=== PATIENT | male | born 1975 | race Two or more races ===

== ENCOUNTER 2016-06-12 10:05 | Emergency (ER) | payer SELFPAY ==
[~2016-06-12] VITALS: Ht 180.3 cm; Wt 100.0 kg
[~2016-06-12 10:05] MED LIST: ACCUTES19 XX; ATOR10TA PO; GLUM1000 PO; GLYB1TAB51 PO; LANTINJ SQ; ZITH250T PO; ZITHTAB PO; test strips
[2016-06-12 10:08] VITALS: BP 134/93; PULSE 82; RESP 15; TEMP 97.8; O2SAT 98
== END 2016-06-12 11:41 | disposition left against medical advice (07) ==
LOC: NETRI 10:05
DX: R07.0 Pain in throat (principal); R59.0 Localized enlarged lymph nodes; Z53.21 Procedure and treatment not carried out due to patient leaving prior to being seen by health care provider
CPT/HCPCS: 99281

== ENCOUNTER 2016-09-11 11:21 | Emergency (ER) | payer SELFPAY ==
[~2016-09-11] VITALS: Ht 180.3 cm; Wt 100.0 kg
[2016-09-11 11:22] VITALS: BP 133/85; PULSE 102; RESP 20; TEMP 99.4; O2SAT 99
--- NOTE | 2016-09-11 11:33 | PD ---
Physical Exam Time Seen by Provider: 11:31 Narrative 40yo M c/o chest tightness, chest congestion, cough, and SOB "sometimes" since yesterday morning. Denies hx asthma. Denies fever. Patient seen in triage. Awaiting bed placement. VS reviewed. Data Data Last Documented VS Vital Signs Date Time Temp Pulse Resp B/P Pulse Ox O2 Delivery O2 Flow Rate FiO2 09/11/16 11:22 99.4 102 20 133/85 99 Room Air MDM Supervised Visit with LAURY: Aparna Trinh Sep 11, 2016 11:33
--- NOTE | 2016-09-11 12:31 | RADRPT ---
EXAM DATE/TIME: 09/11/2016 12:24 [facility] COMPARISON: CHEST SINGLE AP, April 16, 2013, 8:18. INDICATIONS : Cough. MEDICAL HISTORY : Diabetes mellitus type II. SURGICAL HISTORY : None. ENCOUNTER: Initial ACUITY: 2 days PAIN SCORE: 7/10 LOCATION: Bilateral chest FINDINGS: PA and lateral views of the chest demonstrate a normal-sized cardiac silhouette. There is no effusion , consolidation, or pneumothorax. The bones and soft tissues demonstrate no acute abnormality. There are degenerative changes of the thoracic spine. CONCLUSION: No acute cardiopulmonary abnormality is identified. Gagandeep Briggs MD on September 11, 2016 at 12:26 Board Certified Radiologist. This report was verified electronically.
--- NOTE | 2016-09-11 13:35 | PD ---
HPI Chief Complaint: Respiratory Symptoms Time Seen by Provider: 13:34 Travel History International Travel<30 days: No Contact w/Intl Traveler<30days: No Traveled to known affect area: No History of Present Illness HPI 40-year-old untreated diabetic male presents to the ED for evaluation of 2 day history of malaise, sore throat, nonproductive cough, chest tightness. He denies fever or chills, nausea or vomiting, abdominal pain, dysuria. Denies sick contacts. No treatment in the home. PFSH Past Medical History Heart Rhythm Problems: No Cardiac Catheterization: No Cardiovascular Problems: No High Cholesterol: Yes Congestive Heart Failure: No Diabetes: Yes Diminished Hearing: No Immunizations Current: Yes Past Surgical History Coronary Artery Bypass Graft: No Hysterectomy: Yes Social History Alcohol Use: Yes (OCCAS. MIX DRINKS OR BEER) Tobacco Use: No (QUIT 11/29- SMOKED 1 PACK A WEEK -CIGS) Substance Use: No Allergies-Medications (Allergen,Severity, Reaction): Coded Allergies: No Known Allergies (Verified , 01/21/15) Reported Meds & Prescriptions Reported Meds & Active Scripts Active Glyburide 5 Mg Tab 5 Mg PO BID Take with meals at the same time each day Metformin (Metformin HCl) 1,000 Mg Tab 1,000 Mg PO BIDPC With meals Ibuprofen 600 Mg Tab 600 Mg PO Q8HR Tessalon Perles (Benzonatate) 100 Mg Cap 200 Mg PO TID PRN Azithromycin 250 Mg Tab 250 Mg PO DIRECTED Take 2 tabs (500 mg) on day 1 then 1 tab daily x 4 days. Zithromax Z-Bj (Azithromycin) 250 Mg Tab 250 Mg PO DIRECTED 500 MG (2 TABLETS) PO ON DAY 1, THEN 250 MG (1 TABLET) PO ON DAYS 2 TO 5. Zithromax Z-Bj (Azithromycin) 1 Tab Tab 500 Mg PO ONCE Glumetza (Metformin HCl) 1,000 Mg Tab 1,000 Mg PO BID Lantus Solostar Pen (Insulin Glargine) 100 Units/Ml Pen 12 Units SQ HS 90 Days Diabeta 5 mg (Glyburide) 5 Mg Tab 5 Mg PO BID Accu-Chek Celina Plus Test Strips #50 (Device) Strp 1 Box XX AC AND FASTING Atorvastatin 10 mg (Atorvastatin Calcium) 10 Mg Tab 10 Mg PO HS [test strips] TID Review of Systems Except as stated in HPI: all other systems reviewed are Neg Physical Exam Narrative GENERAL: Well-nourished, well-developed ill-appearing male in no acute distress. SKIN: Focused skin assessment warm/dry. HEAD: Normocephalic. EYES: No scleral icterus. No injection or drainage. ENT: Pearly jaimes tympanic membranes bilaterally. Nasal mucosa moist. Oropharynx erythematous without edema or exudates. Tonsils 2+ bilaterally. Uvula midline. Airway patent. NECK: Supple, trachea midline. No JVD or lymphadenopathy. CARDIOVASCULAR: Regular rate and rhythm without murmurs, gallops, or rubs. RESPIRATORY: Breath sounds clear and equal bilaterally. No accessory muscle use. GASTROINTESTINAL: Abdomen soft, non-tender, nondistended. MUSCULOSKELETAL: No cyanosis, or edema. Patient is ambulatory and moves the extremities spontaneously. BACK: Nontender without obvious deformity. No CVA tenderness. Data Data Last Documented VS Vital Signs Date Time Temp Pulse Resp B/P Pulse Ox O2 Delivery O2 Flow Rate FiO2 09/11/16 13:35 18 97 Room Air 09/11/16 11:22 99.4 102 133/85 Orders Chest, Pa & Lat (09/11/16 ) Group A Rapid Strep Screen (09/11/16 13:35) Influenzae A/B Antigen (09/11/16 13:35) Strep Culture (Group A) (09/11/16 13:30) MDM Medical Decision Making Medical Screen Exam Complete: Yes Emergency Medical Condition: Yes Differential Diagnosis Viral syndrome versus upper respiratory infection versus influenza versus pharyngitis versus strep pharyngitis versus other Narrative Course 40-year-old untreated diabetic male presents to the ED for evaluation of 2 day history of malaise, sore throat, nonproductive cough, chest tightness. He denies fever or chills, nausea or vomiting, abdominal pain, dysuria. Denies sick contacts. No treatment at home. Vitals reviewed. Physical exam reveals an ill-appearing male in no acute distress. The oropharynx is erythematous, 2+ tonsils bilaterally. No visible exudates. Chest clear to auscultation bilaterally. Chest x-ray ordered in triage clear per radiology read. Rapid strep and flu swabs negative. This is upper respiratory infection. Patient was prescribed Z-Bj, Tessalon Perles, ibuprofen. He also requested prescriptions for glyburide and metformin as he is in between doctors. I did provide these prescriptions but cautioned him that this should be taken care of by the primary care provider in the future. He is instructed to rest, hydrate, take the medications as prescribed, follow up with the primary care provider. He was provided a work note for the next 2 days. He is stable and discharged home. Diagnosis Primary Impression: Upper respiratory infection Qualified Code: J06.9 - Upper respiratory tract infection, unspecified type Additional Impression: Medication refill Referrals: Primary Care Physician Patient Instructions: General Instructions, Upper Respiratory Infection (ED) Additional Instructions: Rest, hydrate. Take Z-Bj as it is prescribed. Tessalon Perles to reduce the urge to cough. 600 mg ibuprofen up to 3 times a day to reduce throat pain and inflammation.. Replace toothbrush at the end of this illness. Follow-up with the primary care provider this week. Return to the ED for any urgent or emergent medical condition. Med/Other Pt SpecificInfo: Prescription(s) given Scripts Glyburide 5 Mg Tab5 Mg PO BID #60 TAB Ref 0 Take with meals at the same time each day Prov:Florinda Armendariz MD 09/11/16 Metformin 1,000 Mg Tab1,000 Mg PO BIDPC #60 TAB Ref 0 With meals Prov:Florinda Armendariz MD 09/11/16 Ibuprofen 600 Mg Oib124 Mg PO Q8HR #12 TAB Ref 0 Prov:Florinda Armendariz MD 09/11/16 Benzonatate (Tessalon Perles)100 Mg [id number] Mg PO TID PRN (COUGH) #12 CAP Ref 0 Prov:Florinda Armendariz MD 09/11/16 Azithromycin 250 Mg Win592 Mg PO DIRECTED #6 TAB Ref 0 Take 2 tabs (500 mg) on day 1 then 1 tab daily x 4 days. Prov:Florinda Armendariz MD 09/11/16 Disposition: 01 DISCHARGE HOME Condition: Stable Leeanne Wesley Sep 11, 2016 13:35
[2016-09-11] MEDS ORDERED: AZIT250T3 PO (14:17)
[2016-09-11] MEDS ORDERED: IBUP-232 PO (14:17)
[2016-09-11] MEDS ORDERED: BENZ100 PO (14:17)
[2016-09-11] MEDS ORDERED: GLYB5TAB3 PO (14:22)
[2016-09-11] MEDS ORDERED: METF1000 PO (14:22)
== END 2016-09-11 15:11 | disposition home or self-care (01) ==
LOC: NEPD 11:21
DX: J06.9 Acute upper respiratory infection, unspecified (principal); E11.9 Type 2 diabetes mellitus without complications; E78.00 Pure hypercholesterolemia, unspecified; Z79.899 Other long term (current) drug therapy; Z79.4 Long term (current) use of insulin; Z76.0 Encounter for issue of repeat prescription
CPT/HCPCS: 71020; 87081; 87804; 87880; 99284

== ENCOUNTER 2016-12-11 14:49 | Emergency (ER) | payer SELFPAY ==
[~2016-12-11] VITALS: Ht 177.8 cm; Wt 105.5 kg
[~2016-12-11 14:49] MED LIST changes: +AZIT250T3 PO; +BENZ100 PO; +GLYB5TAB3 PO; +IBUP-232 PO; +METF1000 PO
[2016-12-11 14:51] VITALS: BP 149/79; PULSE 84; RESP 16; TEMP 98.4; O2SAT 99
--- NOTE | 2016-12-11 15:05 | PD ---
Physical Exam Date Seen by Provider: Dec 11, 2016 Time Seen by Provider: 15:03 Narrative 41 yo male here for evaluation of eye pain and sinus congestion. Going on for a few days. pain to right eye with swelling. Uses contacts and has since taken it off. Diabetic. Having sinus tenderness. Congestion. No cough. No chest pain or SOB. No abdominal pain. Vitals stable in triage. Awaiting bed placement. Data Data Last Documented VS Vital Signs Date Time Temp Pulse Resp B/P (MAP) Pulse Ox O2 Delivery O2 Flow Rate FiO2 12/11/16 14:51 98.4 84 16 149/79 (102) 99 MDM Medical Record Reviewed: Yes Supervised Visit with LAURY: No Jorge Sandoval Dec 11, 2016 15:05
[2016-12-11] MEDS ORDERED: MAXI5O RIGHT EYE (16:35)
--- NOTE | 2016-12-11 16:41 | PD ---
HPI Chief Complaint: Eye Problems/Injury Time Seen by Provider: 16:23 Travel History International Travel<30 days: No Contact w/Intl Traveler<30days: No Traveled to known affect area: No History of Present Illness HPI 41-year-old male presents the emergency Department with right eye irritation, erythema, and drainage since yesterday. Patient states he slept in his contacts yesterday evening, and awoke with discomfort and redness in the right eye. He removed the right contact, but symptoms have continued with watering of the right eye and rhinitis. Patient denies visual changes. Patient has discomfort of 1 out of 10. He denies headache, sore throat, fever, chills, or other symptoms. He has no known drug allergies. PFSH Past Medical History Heart Rhythm Problems: No Cardiac Catheterization: No Cardiovascular Problems: No High Cholesterol: Yes Congestive Heart Failure: No Diabetes: Yes Diminished Hearing: No Immunizations Current: Yes Past Surgical History Coronary Artery Bypass Graft: No Hysterectomy: Yes Social History Alcohol Use: Yes (OCCAS. MIX DRINKS OR BEER) Tobacco Use: No (QUIT 11/29- SMOKED 1 PACK A WEEK -CIGS) Substance Use: No Allergies-Medications (Allergen,Severity, Reaction): Coded Allergies: No Known Allergies (Verified , 01/21/15) Reported Meds & Prescriptions Reported Meds & Active Scripts Active Maxitrol Opth Drops (Neomycin/Polymyxin/Dexamethasone) 3.5-10,000-0.1 Mg-Units- % Susp 1 Drop RIGHT EYE Q4H Glyburide 5 Mg Tab 5 Mg PO BID Take with meals at the same time each day Metformin (Metformin HCl) 1,000 Mg Tab 1,000 Mg PO BIDPC With meals Ibuprofen 600 Mg Tab 600 Mg PO Q8HR Tessalon Perles (Benzonatate) 100 Mg Cap 200 Mg PO TID PRN Azithromycin 250 Mg Tab 250 Mg PO DIRECTED Take 2 tabs (500 mg) on day 1 then 1 tab daily x 4 days. Zithromax Z-Bj (Azithromycin) 250 Mg Tab 250 Mg PO DIRECTED 500 MG (2 TABLETS) PO ON DAY 1, THEN 250 MG (1 TABLET) PO ON DAYS 2 TO 5. Zithromax Z-Bj (Azithromycin) 1 Tab Tab 500 Mg PO ONCE Glumetza (Metformin HCl) 1,000 Mg Tab 1,000 Mg PO BID Lantus Solostar Pen (Insulin Glargine) 100 Units/Ml Pen 12 Units SQ HS 90 Days Diabeta 5 mg (Glyburide) 5 Mg Tab 5 Mg PO BID Accu-Chek Celina Plus Test Strips #50 (Device) Strp 1 Box XX AC AND FASTING Atorvastatin 10 mg (Atorvastatin Calcium) 10 Mg Tab 10 Mg PO HS [test strips] TID Review of Systems General / Constitutional: No: Fever Eyes: Positive: Redness, Pain (mild), Tearing, No: Diploplia, Blurred Vision, Photophobia, Drainage, Foreign Body Sensation, Blind Spots, Visual changes, Blindness HENT: No: Headaches Cardiovascular: No: Chest Pain or Discomfort Respiratory: No: Shortness of Breath Gastrointestinal: No: Abdominal Pain Genitourinary: No: Dysuria Musculoskeletal: No: Pain Skin: No Rash Neurologic: No: Weakness Psychiatric: No: Depression Endocrine: No: Polydipsia Hematologic/Lymphatic: No: Easy Bruising Physical Exam Narrative GENERAL: Patient appears in no acute distress. SKIN: Warm and dry. Normal color. Normal turgor. No erythema. No rash HEAD: Atraumatic. Normocephalic. EYES: Pupils equal and round. No scleral icterus. The right eye has moderate conjunctival injection with clear drainage. ENT: No nasal bleeding or discharge. Mucous membranes pink and moist. TMs are clear bilaterally. No sinus tenderness to palpation. Pharynx is clear. Airway is patent. NECK: Trachea midline. Supple nontender. CARDIOVASCULAR: Regular rate and rhythm. RESPIRATORY: No accessory muscle use. Clear to auscultation. Breath sounds equal bilaterally. MUSCULOSKELETAL: Extremities without clubbing, cyanosis, or edema. No obvious deformities. NEUROLOGICAL: Awake and alert. No obvious cranial nerve deficits. Motor grossly within normal limits. Five out of 5 muscle strength in the arms and legs. Normal speech. PSYCHIATRIC: Appropriate mood and affect; insight and judgment normal. Data Data Last Documented VS Vital Signs Date Time Temp Pulse Resp B/P (MAP) Pulse Ox O2 Delivery O2 Flow Rate FiO2 12/11/16 14:51 98.4 84 16 149/79 (102) 99 MDM Medical Decision Making Medical Screen Exam Complete: Yes Emergency Medical Condition: Yes Differential Diagnosis Right eye conjunctivitis. Traumatic conjunctivitis. Corneal abrasion. Narrative Course Patient treated with Maxitrol ophthalmic drops. Patient should refrain from contact use for at least one week. Patient to follow with loan specialist if symptoms do not improve or worsen. Diagnosis Primary Impression: Acute conjunctivitis, right eye Qualified Codes: H10.31 - Unspecified acute conjunctivitis, right eye Referrals: Criminal Lawyer Primary Care Physician Patient Instructions: Conjunctivitis (ED) Departure Forms: Work Release Enter return to work date: Dec 12, 2016 Additional Instructions: Patient treated with Maxitrol ophthalmic drops. Patient should refrain from contact use for at least one week. Patient to follow with loan specialist if symptoms do not improve or worsen. Med/Other Pt SpecificInfo: Prescription(s) given Scripts Tkgfyxpd-Uygqawjqs-Vgyjmxfemezfq Opth Drops (Maxitrol Opth Drops) 3.5-10,000- 0.1 Mg-Units-% Susp 1 DROP RIGHT EYE Q4H for Infection, #1 BOTTLE 0 Refills Prov: Samuel Block MD 12/11/16 Disposition: 01 DISCHARGE HOME Condition: Stable Rakan Richard Dec 11, 2016 16:41
== END 2016-12-11 17:07 | disposition home or self-care (01) ==
LOC: NEPK 14:49
DX: H10.31 Unspecified acute conjunctivitis, right eye (principal)
CPT/HCPCS: 99283

== ENCOUNTER 2017-03-16 17:47 | Emergency (ER) | payer SELFPAY ==
[~2017-03-16] VITALS: Ht 177.8 cm; Wt 102.7 kg
[~2017-03-16 17:47] MED LIST changes: +MAXI5O RIGHT EYE
[2017-03-16 18:02] VITALS: BP 142/74; PULSE 111; RESP 20; TEMP 99.8; O2SAT 95
--- NOTE | 2017-03-16 18:44 | RADRPT ---
EXAM DATE/TIME: 03/16/2017 18:27 [facility] COMPARISON: CHEST PA & LAT, September 11, 2016, 12:24. INDICATIONS : Cough. MEDICAL HISTORY : Diabetes mellitus type II. SURGICAL HISTORY : None. ENCOUNTER: Initial ACUITY: 3 days PAIN SCORE: 5/10 LOCATION: Bilateral chest FINDINGS: PA and lateral views of the chest were obtained. The study is more Midinspiratory with crowding of justin ng vasculature. There is patchy opacity now noted at both lung bases. There is no effusion. The heart and mediastinal structures are within normal limits with no perihilar edema. The bony thorax is inta ct. CONCLUSION: Expiratory study with patchy opacity at both lung bases this most consistent with ate lectasis. Larry Lynne MD on March 16, 2017 at 18:39 Board Certified Radiologist. This report was verified electronically.
--- NOTE | 2017-03-16 19:18 | PD ---
HPI Chief Complaint: Cold / Flu Symptoms Time Seen by Provider: 19:08 Travel History International Travel<30 days: No Contact w/Intl Traveler<30days: [place] Traveled to: [place] Traveled to known affect area: No History of Present Illness HPI The patient is a 41-year-old male that complains of cough productive of brown and green sputum for 3 days. He does have epistaxis on occasion. He smokes half pack every week. He has not recorded a temperature at home. He states he has a pain of 8/10, pleuritic and sharp in the bilateral anterior chest region. He has a glyburide and metformin controlled diabetic. He is poorly compliant on his diabetic medications, he did not take his metformin or glyburide today. He was just seen by in [place] yesterday and a nasal swab was negative for the flu. PFSH Past Medical History Heart Rhythm Problems: No Cardiac Catheterization: No Cardiovascular Problems: No High Cholesterol: Yes Congestive Heart Failure: No Diabetes: Yes (type 2) Patient Takes Glucophage: No Diminished Hearing: No Heparin Induced Thrombocytopen: No Hypertension: No Immunizations Current: Yes Tetanus Vaccination: < 5 Years Influenza Vaccination: No Past Surgical History Coronary Artery Bypass Graft: No Hysterectomy: Yes Other Surgery: Yes (vasectomy) Family History Family Myocardial Infarction: No Social History Alcohol Use: Yes (OCCAS. MIX DRINKS OR BEER) Tobacco Use: Yes (when he drinks alcohol) Substance Use: No Allergies-Medications (Allergen,Severity, Reaction): Coded Allergies: No Known Allergies (Verified Adverse Reaction, Unknown, 03/16/17) Reported Meds & Prescriptions Reported Meds & Active Scripts Active Glyburide 5 Mg Tab 5 Mg PO BID Take with meals at the same time each day Metformin (Metformin HCl) 1,000 Mg Tab 1,000 Mg PO BIDPC With meals Ibuprofen 600 Mg Tab 600 Mg PO Q8HR Azithromycin 250 Mg Tab 250 Mg PO DIRECTED Take 2 tabs (500 mg) on day 1 then 1 tab daily x 4 days. [test strips] TID Review of Systems Except as stated in HPI: all other systems reviewed are Neg Physical Exam Narrative GENERAL: The patient is alert, oriented 3 in no respiratory distress. His vital signs show heart rate of 111 and temperature of 99.8 but the vital signs are otherwise normal. SKIN: Focused skin assessment warm/dry. HEAD: Atraumatic. Normocephalic. EYES: Pupils equal and round. No scleral icterus. No injection or drainage. ENT: No nasal bleeding or discharge. Mucous membranes pink and moist. NECK: Trachea midline. No JVD. There is no meningismus present. CARDIOVASCULAR: Regular rate and rhythm. No murmur appreciated. RESPIRATORY: No accessory muscle use. Clear to auscultation. Breath sounds equal bilaterally. GASTROINTESTINAL: Abdomen soft, non-tender, nondistended. Hepatic and splenic margins not palpable. MUSCULOSKELETAL: No obvious deformities. No clubbing. No cyanosis. No edema. NEUROLOGICAL: Awake and alert. No obvious cranial nerve deficits. Motor grossly within normal limits. Normal speech. PSYCHIATRIC: Appropriate mood and affect; insight and judgment normal. Data Data Last Documented VS Vital Signs Date Time Temp Pulse Resp B/P (MAP) Pulse Ox O2 Delivery O2 Flow Rate FiO2 03/16/17 20:04 90 16 117/77 (90) 98 Room Air 03/16/17 18:02 99.8 Orders Orders Chest, Pa & Lat (03/16/17 ) Complete Blood Count With Diff (03/16/17 19:09) Basic Metabolic Panel (Bmp) (03/16/17 19:09) Influenzae A/B Antigen (03/16/17 19:35) Ketorolac Inj (Toradol Inj) (03/16/17 19:45) Labs Laboratory Tests Test 03/16/17 19:20 White Blood Count 6.7 TH/MM3 Red Blood Count 5.71 MIL/MM3 Hemoglobin 15.1 GM/DL Hematocrit 46.4 % Mean Corpuscular Volume 81.2 FL Mean Corpuscular Hemoglobin 26.4 PG Mean Corpuscular Hemoglobin Concent 32.5 % Red Cell Distribution Width 12.6 % Platelet Count 209 TH/MM3 Mean Platelet Volume 8.2 FL Neutrophils (%) (Auto) 72.3 % Lymphocytes (%) (Auto) 17.1 % Monocytes (%) (Auto) 10.1 % Eosinophils (%) (Auto) 0.1 % Basophils (%) (Auto) 0.4 % Neutrophils # (Auto) 4.9 TH/MM3 Lymphocytes # (Auto) 1.1 TH/MM3 Monocytes # (Auto) 0.7 TH/MM3 Eosinophils # (Auto) 0.0 TH/MM3 Basophils # (Auto) 0.0 TH/MM3 CBC Comment DIFF FINAL Differential Comment Blood Urea Nitrogen 21 MG/DL Creatinine 0.97 MG/DL Random Glucose 295 MG/DL Calcium Level 8.2 MG/DL Sodium Level 133 MEQ/L Potassium Level 4.1 MEQ/L Chloride Level 100 MEQ/L Carbon Dioxide Level 27.6 MEQ/L Anion Gap 5 MEQ/L Estimat Glomerular Filtration Rate 84 ML/MIN MDM Medical Decision Making Medical Screen Exam Complete: Yes Emergency Medical Condition: Yes Medical Record Reviewed: Yes Interpretation(s) The chest x-ray shows expiratory study with patchy opacity of both lung bases consistent with atelectasis. The CBC is normal. The white count is only 6700. The basic metabolic profile shows a sodium of 133, BUN 21, glucose of 295 and calcium of 8.2 but is otherwise normal. The influenza A/B antigen is negative for flu a and flu B antigen. Differential Diagnosis Pneumonia, bronchitis, epistaxis, viral upper respiratory infection, hyper/ hypoglycemia Narrative Course The patient appears to have a viral upper respiratory infection. Diagnosis Primary Impression: Upper respiratory infection Additional Impressions: Noncompliance with medications Poorly controlled diabetes mellitus Additional Instructions: As we discussed, he will need to take your metformin and glyburide correctly. Quit smoking, rest and drink plenty of liquids and orange juice. Follow-up with your primary care physician next week. Disposition: 01 DISCHARGE HOME Condition: Stable Stone Henson MD Mar 16, 2017 19:18
[2017-03-16 19:24] LABS: AUTOMATED NEUTROPHIL # 4.9 TH/MM3 (1.8-7.7); BASOPHIL % 0.4 % (0.0-2.0); EOSINOPHIL % 0.1 % (0.0-4.0); HEMATOCRIT 46.4 % (39.0-51.0); HEMOGLOBIN 15.1 GM/DL (13.0-17.0); LYMPH % 17.1 % (9.0-44.0); LYMPHOCYTE # 1.1 TH/MM3 (1.0-4.8); MEAN CELL VOLUME 81.2 FL (80.0-100.0); MEAN CORPUSCULAR HEMOGLOBIN 26.4 PG (27.0-34.0); MEAN CORPUSCULAR HGB CONC 32.5 % (32.0-36.0); MEAN PLATELET VOLUME 8.2 FL (7.0-11.0); MONO % 10.1 % (0.0-8.0); MONOCYTE # 0.7 TH/MM3 (0-0.9); NEUT % 72.3 % (16.0-70.0); PLATELET COUNT 209 TH/MM3 (150-450); RED BLOOD COUNT 5.71 MIL/MM3 (4.50-5.90); RED CELL DISTRIBUTION WIDTH 12.6 % (11.6-17.2); WHITE BLOOD COUNT 6.7 TH/MM3 (4.0-11.0)
[2017-03-16 19:38] LABS: CALCIUM 8.2 MG/DL (8.5-10.1)
[2017-03-16 19:39] LABS: BICARBONATE 27.6 MEQ/L (21.0-32.0)
[2017-03-16 19:42] LABS: CREATININE 0.97 MG/DL (0.60-1.30)
[2017-03-16] MEDS ORDERED: KETOROLAC TROMETHAMINE 60 MG/2 ML (IM) VIAL IVP ONE (19:45)
[2017-03-16 20:04] VITALS: BP 117/77; PULSE 90; RESP 16; O2SAT 98
[2017-03-16 20:29] VITALS: BP 120/77; TEMP 99.5
== END 2017-03-16 20:41 | disposition home or self-care (01) ==
LOC: PHED 17:47
DX: J06.9 Acute upper respiratory infection, unspecified (principal); E11.65 Type 2 diabetes mellitus with hyperglycemia; E78.00 Pure hypercholesterolemia, unspecified; F17.200 Nicotine dependence, unspecified, uncomplicated; Z91.14 Patient's other noncompliance with medication regimen
CPT/HCPCS: 71020; 80048; 85025; 87804; 96374; 99284; J1885

== ENCOUNTER 2017-04-14 17:53 | Emergency (ER) | payer SELFPAY ==
[~2017-04-14] VITALS: Ht 177.8 cm; Wt 104.0 kg
[~2017-04-14 17:53] MED LIST changes: -ACCUTES19 XX; -ATOR10TA PO; -BENZ100 PO; -GLUM1000 PO; -GLYB1TAB51 PO; -LANTINJ SQ; -MAXI5O RIGHT EYE; -ZITH250T PO; -ZITHTAB PO
[2017-04-14 17:56] VITALS: BP 138/83; PULSE 98; RESP 16; TEMP 98.2; O2SAT 98
--- NOTE | 2017-04-14 19:08 | PD ---
HPI Chief Complaint: Laceration/Skin Injury Time Seen by Provider: 18:54 Travel History International Travel<30 days: No Contact w/Intl Traveler<30days: No Traveled to known affect area: No History of Present Illness HPI 41-year-old male presents to emergency department with a laceration to the left fifth finger after opening a can today. States that he was opening a can of at work today and cut his finger on the lid as he was opening it. Patient states that currently his finger feels numb distal to the laceration but does have full range of motion. Last tetanus within 5 years. Denies weakness of the finger. PFSH Past Medical History Heart Rhythm Problems: No Cardiac Catheterization: No Cardiovascular Problems: No High Cholesterol: Yes Congestive Heart Failure: No Diabetes: Yes (type 2) Patient Takes Glucophage: Yes Diminished Hearing: No Heparin Induced Thrombocytopen: No Hypertension: No Immunizations Current: Yes Past Surgical History Coronary Artery Bypass Graft: No Hysterectomy: Yes Other Surgery: Yes (vasectomy) Social History Alcohol Use: Yes (OCCAS. MIX DRINKS OR BEER) Tobacco Use: Yes (when he drinks alcohol) Substance Use: No Allergies-Medications (Allergen,Severity, Reaction): Coded Allergies: No Known Allergies (Verified Adverse Reaction, Unknown, 04/14/17) Reported Meds & Prescriptions Reported Meds & Active Scripts Active Keflex (Cephalexin) 500 Mg Cap 500 Mg PO Q8H 7 Days Glyburide 5 Mg Tab 5 Mg PO BID Take with meals at the same time each day Metformin (Metformin HCl) 1,000 Mg Tab 1,000 Mg PO BIDPC With meals Review of Systems Except as stated in HPI: all other systems reviewed are Neg Physical Exam Narrative GENERAL: Well-developed well-nourished in no apparent distress SKIN: Focused skin assessment warm/dry. HEAD: Atraumatic. Normocephalic. EYES: Pupils equal and round. No scleral icterus. No injection or drainage. ENT: No nasal bleeding or discharge. Mucous membranes pink and moist. NECK: Trachea midline. No JVD. CARDIOVASCULAR: Regular rate and rhythm. No murmur appreciated. RESPIRATORY: No accessory muscle use. Clear to auscultation. Breath sounds equal bilaterally. MUSCULOSKELETAL: No obvious deformities. No clubbing. No cyanosis. No edema. Left fifth finger DIP- distal fingertip dull to sharp sensation, lateral aspects sensation present to sharp, neurovascularly intact. NEUROLOGICAL: Awake and alert. No obvious cranial nerve deficits. Motor grossly within normal limits. Normal speech. PSYCHIATRIC: Appropriate mood and affect; insight and judgment normal. Data Data Last Documented VS Vital Signs Date Time Temp Pulse Resp B/P (MAP) Pulse Ox O2 Delivery O2 Flow Rate FiO2 04/14/17 17:56 98.2 98 16 138/83 (101) 98 Orders Orders Finger ([id number]) (04/14/17 ) Ed Discharge Order (04/14/17 20:09) [facility] Medical Decision Making Medical Screen Exam Complete: Yes Emergency Medical Condition: Yes Differential Diagnosis Left fifth finger laceration, avulsion, abrasion Narrative Course 41-year-old male presents to emergency department with a laceration to the left fifth finger after opening a can today. States that he was opening a can of at work today and cut his finger on the lid as he was opening it. Patient states that currently his finger feels numb distal to the laceration but does have full range of motion. Last tetanus within 5 years. Denies weakness of the finger. Vital signs stable. Physical exam findings consistent with a laceration to the left fifth finger. Distal aspects appears to be numb too sharp sensation however, he does have sensation to dull. Lateral aspects finger have sharp sensation. Otherwise neurovascularly intact. Normal strength with flexion and extension of the finger. X-ray without acute process, no foreign body seen. Laceration repair completed today. Advised patient to follow up with his primary care physician this week. Keflex for antibiotic prophylaxis. Wound care advised. Advised to avoid excessive moisture or work to the area. Suture removal in 7-10 days. Advised to monitor for signs of infection to include redness, swelling. Procedures Procedure Narrative LACERATION LOCATION: Left fifth finger, near DIP LENGTH: 1 cm NUMBER OF STITCHES/VÍCTOR: 5, 6-0 Prolene REPAIR: The area of the laceration was prepped with Betadine and sterilely draped. Digital block performed of the fifth finger. The wound was copiously irrigated and explored without evidence of foreign body , tendon injury or neurovascular injury. The wound was closed using 5-0 Prolene. This was a single layer repair. A sterile dressing was applied. The patient was advised to keep the dressing clean and dry. Patient tolerated the procedure well. Diagnosis Primary Impression: Laceration of finger Qualified Codes: S61.217A - Laceration without foreign body of left little finger without damage to nail, initial encounter Referrals: Hand Surgeon Primary Care Physician Departure Forms: Tests/Procedures, Work Release Enter return to work date: Apr 16, 2017 Special Instructions: No excessive uses of the hands, no excessive wetting of the hands for 7 days to 2 weeks. Additional Instructions: Follow up with your primary care physician within 2-3 days. If your symptoms persist or worsen, return to the emergency department. Keep area clean and dry for 24 hours You may bathe as normal. You may use [id number] triple antibiotic ointments for your injury daily. Change dressings daily. If bleeding starts again, applied pressure and elevate the area. If he developed increased redness, swelling, or pain return to the emergency department. Suture removal in 7-10 days Scripts Cephalexin (Keflex) 500 Mg Cap 500 MG PO Q8H for Infection for 7 Days, #21 CAP 0 Refills Prov: Elizabeth Barraza 04/14/17 Disposition: 01 DISCHARGE HOME Condition: Stable Elizabeth Barraza Apr 14, 2017 19:08
--- NOTE | 2017-04-14 19:40 | RADRPT ---
EXAM DATE/TIME: 04/14/2017 19:16 [facility] COMPARISON: No previous studies available for comparison. INDICATIONS : Laceration to 5th digit. MEDICAL HISTORY : None. SURGICAL HISTORY : None. ENCOUNTER: Initial ACUITY: 1 day PAIN SCORE: 10/10 LOCATION: Left 5th Digit. FINDINGS: Examination of the fifth digit of the left hand demonstrates no evidence of fracture or dislocation. No radiopaque foreign bodies are seen. The soft tissues are intact. CONCLUSION: No radiopaque foreign body or fracture. Gagandeep Hay MD on April 14, 2017 at 19:38 Board Certified Radiologist. This report was verified electronically.
[2017-04-14] MEDS ORDERED: CEPH-460 PO (20:10)
== END 2017-04-14 20:24 | disposition home or self-care (01) ==
LOC: PHEFT 17:53
DX: S61.217A Laceration without foreign body of left little finger without damage to nail, initial encounter (principal); E11.9 Type 2 diabetes mellitus without complications; E78.00 Pure hypercholesterolemia, unspecified; W26.8XXA Contact with other sharp object(s), not elsewhere classified, initial encounter; Y99.0 Civilian activity done for income or pay; Z79.84 Long term (current) use of oral hypoglycemic drugs
CPT/HCPCS: 12001; 73140